=== PATIENT | male | born 1965 | race African-American/Black ===

== ENCOUNTER 2018-07-20 10:24 | Emergency (ER) | payer MEDICAID, OTHER ==
[~2018-07-20] VITALS: Ht 167.6 cm; Wt 73.0 kg
[2018-07-20] MEDS ORDERED: SODIUM CHLORIDE 0.9% 1,000 ML IV ONE (11:06)
[2018-07-20] MEDS ORDERED: HALOPERIDOL LACTATE 5MG/ML VIAL IM STA (11:06)
[2018-07-20] MEDS ORDERED: LORAZEPAM 2MG/ML CPJ IM STA ×2 (11:06→13:19)
[2018-07-20] MEDS ORDERED: LORAZEPAM 2MG/ML CPJ IV ONE (11:15)
[2018-07-20 11:43] LABS: BASOPHILS % 0.7 % (0.0-2.0); EOSINOPHILS % 1.3 % (0.0-5.0); HEMATOCRIT. 43.3 % (42.0-52.0); HEMOGLOBIN. 14.6 g/dL (14.0-18.0); LYMPHOCYTES % 21.8 % (20.0-50.0); MEAN CORPUSCULAR HEMOGLOBIN 27.5 pg (28.0-32.0); MEAN CORPUSCULAR VOLUME 81.9 fL (80.0-94.0); MEAN PLATELET VOLUME 7.4 fl (7.4-10.4); MONOCYTES % 5.3 % (2.0-8.0); NEUTROPHILS % 70.9 % (40.0-76.0); PLATELET 270 x1000/uL (130-400); RED CELL DISTRIBUTION WIDTH 16.6 % (11.6-14.6)
[2018-07-20 11:50] LABS: CHLORIDE 107 mEq/L (98-107)
[2018-07-20 11:59] LABS: ETHANOL BLOOD < 10 mg/dL
[2018-07-20 12:52] LABS: CLARITY URINE CLEAR (CLEAR); COLOR URINE YELLOW (YELLOW); KETONES URINE NEGATIVE (NEGATIVE); LEUKOCYTE ESTERASE URINE NEGATIVE (NEGATIVE); NITRITE URINE NEGATIVE (NEGATIVE); OCCULT BLOOD URINE NEGATIVE (NEGATIVE); PH URINE 5.5 (4.5-8.0); PROTEIN URINE NEGATIVE (NEGATIVE); UROBILINOGEN URINE 0.2 E.U./dL (0.2-1.0)
[2018-07-20 13:06] LABS: *AMPHETAMINES SCREEN URINE NEGATIVE (NEGATIVE); *BARBITURATES SCREEN URINE NEGATIVE (NEGATIVE); *BENZODIAZEPINES SCREEN URINE NEGATIVE (NEGATIVE); *COCAINE SCREEN URINE NEGATIVE (NEGATIVE); METHADONE URINE SCREEN NEGATIVE (NEGATIVE)
[2018-07-20 13:07] LABS: CANNABINOID URINE SCREEN PRESUMTIVE POSITIVE (NEGATIVE); OPIATES URINE SCREEN NEGATIVE (NEGATIVE); PHENCYCLIDINE URINE SCREEN PRESUMTIVE POSITIVE (NEGATIVE)
[2018-07-20 18:19] VITALS: BP 148/79
== END 2018-07-20 18:15 | disposition home or self-care (01) ==
LOC: ER 10:24
DX: F16.229 Hallucinogen dependence with intoxication, unspecified (principal); R41.82 Altered mental status, unspecified; J45.909 Unspecified asthma, uncomplicated; Z78.1 Physical restraint status
CPT/HCPCS: 36415; 70450; 80053; 80305; 80320; 81003; 85025; 93005; 96361; 96372; 99284; J1630; J2060; J7030; Z7610; G0480

== ENCOUNTER 2019-10-18 22:47 | Emergency (ER) | payer SELFPAY ==
[~2019-10-18] VITALS: Ht 182.9 cm; Wt 91.0 kg
[2019-10-18] MEDS ORDERED: IBUPROFEN 600MG TABLET PO ONE (23:15)
[2019-10-19] MEDS ORDERED: BACITRACIN ZINC OINT UDPKT TOP ONE
[2019-10-19] MEDS ORDERED: LIDOCAINE HCL/PF 1% 10 MG/ML 5ML VIAL IJ ONE
[2019-10-19 00:41] VITALS: BP 121/74
== END 2019-10-19 00:44 | disposition home or self-care (01) ==
LOC: ER 22:53
DX: S90.511A Abrasion, right ankle, initial encounter (principal); W26.8XXA Contact with other sharp object(s), not elsewhere classified, initial encounter; Y93.89 Activity, other specified; Y92.89 Other specified places as the place of occurrence of the external cause; Y99.8 Other external cause status
CPT/HCPCS: 73600; 99283

== ENCOUNTER 2020-05-02 15:55 | Emergency (ER) | payer MEDICAID ==
[~2020-05-02] VITALS: Ht 182.9 cm; Wt 91.0 kg
[2020-05-02] MEDS ORDERED: DEXTROSE 50% WATER 50ML SYRINGE IV ONE (17:00)
[2020-05-02] MEDS ORDERED: SODIUM CHLORIDE 0.9% 1,000 ML IV ONE (17:00)
[2020-05-02 17:24] LABS: CHLORIDE 111 mEq/L (98-107)
[2020-05-02 17:27] LABS: BASOPHILS % 0.7 % (0.0-2.0); EOSINOPHILS % 2.5 % (0.0-5.0); HEMATOCRIT. 41.2 % (42.0-52.0); HEMOGLOBIN. 13.6 g/dL (14.0-18.0); LYMPHOCYTES % 22.2 % (20.0-50.0); MEAN CORPUSCULAR HEMOGLOBIN 27.2 pg (28.0-32.0); MEAN CORPUSCULAR VOLUME 82.2 fL (80.0-94.0); MEAN PLATELET VOLUME 7.9 fl (7.4-10.4); MONOCYTES % 7.5 % (2.0-8.0); NEUTROPHILS % 67.1 % (40.0-76.0); PLATELET 220 x1000/uL (130-400); RED BLOOD CELL COUNT 5.01 mill/uL (4.7-6.1); RED CELL DISTRIBUTION WIDTH 17.3 % (11.6-14.6)
[2020-05-02 17:28] VITALS: BP 147/76
[2020-05-02 17:28] LABS: ETHANOL BLOOD 136 mg/dL
[2020-05-02 18:17] LABS: *AMPHETAMINES SCREEN URINE NEGATIVE (NEGATIVE); *BARBITURATES SCREEN URINE NEGATIVE (NEGATIVE); *BENZODIAZEPINES SCREEN URINE NEGATIVE (NEGATIVE); *COCAINE SCREEN URINE NEGATIVE (NEGATIVE)
[2020-05-02 18:18] LABS: CANNABINOID URINE SCREEN NEGATIVE (NEGATIVE); METHADONE URINE SCREEN NEGATIVE (NEGATIVE); OPIATES URINE SCREEN NEGATIVE (NEGATIVE); PHENCYCLIDINE URINE SCREEN PRESUMTIVE POSITIVE (NEGATIVE)
[2020-05-02 18:19] LABS: COLOR URINE YELLOW (YELLOW)
[2020-05-02 18:20] LABS: CLARITY URINE CLEAR (CLEAR); KETONES URINE NEGATIVE (NEGATIVE); PROTEIN URINE NEGATIVE (NEGATIVE); SPECIFIC GRAVITY URINE 1.015 (1.005-1.030)
[2020-05-02 18:21] LABS: LEUKOCYTE ESTERASE URINE NEGATIVE (NEGATIVE); NITRITE URINE NEGATIVE (NEGATIVE); OCCULT BLOOD URINE NEGATIVE (NEGATIVE); UROBILINOGEN URINE 0.2 E.U./dL (0.2-1.0)
== END 2020-05-02 17:45 | disposition left against medical advice (07) ==
LOC: ER 15:55
DX: R41.82 Altered mental status, unspecified (principal); F14.10 Cocaine abuse, uncomplicated; F12.10 Cannabis abuse, uncomplicated; F16.20 Hallucinogen dependence, uncomplicated; F13.10 Sedative, hypnotic or anxiolytic abuse, uncomplicated
CPT/HCPCS: 36415; 80053; 80305; 80320; 81003; 82962; 84484; 85025; 96361; 96374; 99284; J7030; Z7610; G0480

== ENCOUNTER 2021-02-23 14:09 | Emergency (ER) | payer MEDICAID ==
[~2021-02-23] VITALS: Ht 182.9 cm; Wt 97.0 kg
[2021-02-23] MEDS ORDERED: TRAM50TA94 MT (15:49)
[2021-02-23] MEDS ORDERED: TRAMADOL 50MG TABLET PO ONE (16:00)
[2021-02-23 16:26] VITALS: BP 147/90
== END 2021-02-23 16:28 | disposition home or self-care (01) ==
LOC: ER 14:09
DX: M79.662 Pain in left lower leg (principal); M79.661 Pain in right lower leg; R03.0 Elevated blood-pressure reading, without diagnosis of hypertension; Z87.828 Personal history of other (healed) physical injury and trauma; D16.22 Benign neoplasm of long bones of left lower limb; Z88.0 Allergy status to penicillin; F14.90 Cocaine use, unspecified, uncomplicated; F16.90 Hallucinogen use, unspecified, uncomplicated; F13.90 Sedative, hypnotic, or anxiolytic use, unspecified, uncomplicated; F12.90 Cannabis use, unspecified, uncomplicated
CPT/HCPCS: 73590; 99283